=== PATIENT | female | born 1955 | race Caucasian/White ===

== ENCOUNTER → 2016-09-20 | Outpatient (CLI) | payer OTHER ==
[~2016-09-20] MED LIST: IOPAMIDOL (ISOVUE 370) 100 ML BTL IV ONE
== END ==
LOC: FIMAGING 17:42
PROVIDERS: ATTEND Internal Medicine Geriatric Medicine
DX: J90 Pleural effusion, not elsewhere classified (principal); J98.11 Atelectasis; I87.8 Other specified disorders of veins
CPT/HCPCS: Q9967

== ENCOUNTER 2017-01-11 08:04 | Day surgery (SDC) | payer OTHER ==
[2017-01-11] MEDS ORDERED: MIDAZOLAM 2 MG/2 ML VIAL IVP ONE (08:07)
[2017-01-11] MEDS ORDERED: fentaNYL 100 MCG/2 ML INJ IVP ONE (08:07)
[2017-01-11] MEDS ORDERED: NS 1,000 ML IV ONE (08:07)
[2017-01-11] MEDS ORDERED: BENZOCAINE UNIT DOSE SPRAY HURRICAINE MM ONE (08:07)
[2017-01-11] MEDS ORDERED: ATROPINE SULFATE 1 MG/10 ML SYR ONE (09:15)
--- NOTE | 2017-01-11 11:13 | ECHO ---
[id number] + + [address] : : [place] [address] : : [phone] + + Transesophageal Echocardiographic Report + -------+ :Name: ANIRUDH VOGEL Ramon Date: 01/11/2017 09:16 AM : : Hospital Admission Number: [id number] Locati on: [facility]: :: 1955 Gender: Female : :Age: 61 yrs Race: WH : :Reason For Study: Eval mitral regurgitation : + -------+ MMode/2D Measurements \T\ Calculations MV Diam: 4.2 cmLVOT diam: 2.0 cm LVLd ap4: 7.9 cm SV(MOD-sp4): 58.0 ml EDV(MOD-sp4): 99.0 ml LVOT area: 3.1 cm2 LVLs ap4: 6.4 cm ESV(MOD-sp4): 41.0 ml EF(MOD-sp4): 58.6 % Normal Measurement Values: + + :LVIDd (3.5-5.7cm) IVSd (0.6-1.1cm) LVPWd (0.6-1.1cm) Aortic Root (2.0-3.7cm)Left Atrium (1.5-4.0cm): :LV Vol(d) (76-115ml) LV Vol(s) (29-48ml) Ejec Fraction (50-65%)PV Adi (0.6- 1.2m/s) TV Adi (0.4-1.0m/s) : :MV E Adi (0.8-1.0m/s)MV A Adi (0.3-1.0m/s)LVOT Adi (0.7-1.2m/s) Asc Ao Adi ( 0.9-1.8m/s) : + + Doppler Measurements \T\ Calculations MV V2 max: Ao mean PG: AI max adi: LV V1 mean P.9 cm/sec 4.7 mmHg 447.7 cm/sec 2.0 mmHg MV max P.9 mmHg Ao V2 mean: AI max PG: LV V1 mean: MV V2 mean: 100.7 cm/sec 80.2 mmHg 70.2 cm/sec 76.1 cm/sec Ao V2 VTI: AI dec slope: LV V1 VTI: MV mean P.6 mmHg27.3 cm 214.9 cm/sec2 20.7 cm MV V2 VTI: 27.6 cm ISATU(I,D): 2.3 cm2 AI P1/2t: MV area (1 diam): 610.2 msec 13.9 cm2 MVA(VTI): 2.3 cm2 MV Flow area(1diam): 13.9 cm2 MR max adi: MR(RF 1 diam): SV(MV 1 diam): RF(MV,LVOT) 533.4 cm/sec 13.0 % 383.5 ml (1diam): 0.84 MR max PG: SV(LVOT): 63.2 ml 113.8 mmHg Left Ventricle The left ventricle is normal in size. Left ventricular systolic function is low normal. Ejection Fraction = 50-55%%. The left ventricular wall motion is normal. Right Ventricle The right ventricle is normal in size and function. Atria Injection of contrast documented no interatrial shunt. No thrombus is detected in the left atrial appendage. The left atrium is moderately dilated. Right atrial size is normal. Mitral Valve Question slight prolapse of the anterior mitral leaflet. Severe mitral regurgitation with 2 separate jets. Eccentric main jet along the posterior wall of the LA. Tricuspid Valve The tricuspid valve is normal in structure and function. There is mild tricuspid regurgitation. Aortic Valve The aortic valve is trileaflet. Mild aortic regurgitation. Pulmonic Valve The pulmonic valve is not well visualized. Vessels The aortic root is normal size. The pulmonary artery is normal size. Conclusion A 2D transesophageal echocardiogram with color flow Doppler was performed. Normal LV size with low normal LV systolic function. Ejection Fraction = 50-55%. Normal wall motion. Moderate LAE. Injection of contrast documented no interatrial shunt. No thrombus is detected in the left atrial appendage. Normal appearing aortic, tricuspid and pulmonic valves. Question slight prolapse of the anterior mitral leaflet. There is mild tricuspid regurgitation. Mild aortic regurgitation. Severe mitral regurgitation with 2 separate jets. Eccentric main jet along the posterior wall of the LA. Final Reading Physician: William Vogel signed on 01/11/2017 11:12 AM Ordering Physician: Audi Soriano Performed By: Audi Soriano MD
== END 2017-01-11 12:05 | disposition home or self-care (01) ==
LOC: FCATH 08:04
PROVIDERS: ATTEND Internal Medicine Cardiovascular Disease
PROC: B246ZZ4 Ultrasonography of Right and Left Heart, Transesophageal (ICD-10-PCS; principal; 2017-01-11)
DX: I34.0 Nonrheumatic mitral (valve) insufficiency (principal)
CPT/HCPCS: J0461; J2250; J3010

== ENCOUNTER 2017-02-01 13:16 | Observation (INO) | payer OTHER ==
[~2017-02-01 13:16] MED LIST changes: +ACETAMINOPHEN 325 MG TAB PO PRN; +ASPIRIN EC 325 MG TAB PO ONE; +DIAZEPAM 5 MG TAB PO ONE; +FAMOTIDINE 20 MG TAB PO ONE; -IOPAMIDOL (ISOVUE 370) 100 ML BTL IV ONE; +NITROGLYCERIN 0.4 MG BTL SL PRN; +NS 1,000 ML IV SCH; +TEMAZEPAM 15 MG CAP PO PRN; +diphenhydrAMINE 25 MG CAP PO ONE
[2017-02-01] MEDS ORDERED: ASPIRIN EC 325 MG TAB PO ONE ×2 (13:23→14:08)
[2017-02-01] MEDS ORDERED: NS 1,000 ML IV ONE (13:23)
[2017-02-01] MEDS ORDERED: DIAZEPAM 5 MG TAB PO ONE (13:23)
[2017-02-01] MEDS ORDERED: diphenhydrAMINE 25 MG CAP PO ONE ×2 (13:23→14:07)
[2017-02-01] MEDS ORDERED: FAMOTIDINE 20 MG TAB PO ONE (13:23)
--- NOTE | 2017-02-01 13:55 | CPEKG ---
Heart Rate: 88 RR Interval: 682 P-R Interval: 212 QRSD Interval: 80 QT Interval: 400 QTC Interval: 484 P [place]: 71 QRS [place]: 1 T Wave [place]: 59 EKG Severity - ABNORMAL ECG - EKG Impression: SINUS RHYTHM EKG Impression: MULTIFORM VENTRICULAR PREMATURE COMPLEXES Electronically Signed By: August Myers 01-Feb-2017 15:52:57
[2017-02-01] MEDS ORDERED: DIAZEPAM 5 MG TAB ONE (14:08)
[2017-02-01] MEDS ORDERED: FAMOTIDINE 20 MG TAB ONE (14:08)
--- NOTE | 2017-02-01 14:19 | PDPROPOC ---
Sedation Plan of Care Sedation Plan of Care: vital signs stable, mental status noted, patient educated of risks, benefits, alternatives, patient can tolerate sedation ASA Classification: ASA 1 Planned drugs: fentanyl, midazolam Mallampati Score: Class 1 Mallampati Reference Image: Patient passed 3-3-2 rule?: Yes
--- NOTE | 2017-02-01 14:20 | PDHPUP ---
History & Physical Update H&P update statement: This history and physical update is based on an assessment of the patient which was completed after admission or registration (within 24 hours), but prior to the surgery/procedure. H&P update: H&P reviewed & patient examined, no change in patient's condition since H&P completed
[2017-02-01 14:23] LABS: % IMMATURE GRANULYOCYTES 0.2 % (0.0-1.1); ABSOLUTE IMMATURE GRANULOCYTES 0.01 10^3/uL (0.00-0.10); ADD DIFF? NO; ADD MORPH? NO; ADD SCAN? NO; ATYPICAL LYMPHOCYTE FLAG 0 (0-99); FRAGMENT RBC FLAG 0 (0-99); HEMATOCRIT 43.1 % (38.0-47.0); HEMOGLOBIN 14.1 g/dL (12.6-16.3); LEFT SHIFT FLG 0 (0-99); LIPEMIA HEMOLYSIS FLAG 80 (0-99); MEAN CELL HEMOGLOBIN 28.4 pg (27.9-34.1); MEAN CELL HEMOGLOBIN CONCENTR. 32.7 g/dL (32.4-36.7); MEAN CELL VOLUME 86.7 fL (81.5-99.8); MEAN PLATELET VOLUME 11.1 fL (8.7-11.7); PLATELET CLUMPS FLAG 20 (0-99); PLATELET COUNT 207 10^3/uL (150-400); RED BLOOD CELL COUNT 4.97 10^6/uL (4.18-5.33); RED CELL DISTRIBUTION WIDTH 14.5 % (11.5-15.2)
[2017-02-01] MEDS ORDERED: LIDOCAINE 1% 300 MG/30 ML SDV ONE (14:30)
[2017-02-01] MEDS ORDERED: fentaNYL 100 MCG/2 ML INJ ONE (14:31)
[2017-02-01] MEDS ORDERED: MIDAZOLAM 2 MG/2 ML VIAL ONE (14:31)
[2017-02-01 14:32] LABS: INR 1.01 (0.83-1.16); PROTIME(PATIENT) 13.2 SEC (12.0-15.0)
[2017-02-01] MEDS ORDERED: IOPAMIDOL (ISOVUE-370) 150 ML BTL IV ONE (14:32)
[2017-02-01 14:50] LABS: ANION GAP 9 mEq/L (8-16); CALCIUM 9.7 mg/dL (8.5-10.4); CARBON DIOXIDE 23 mEq/l (22-31); CHLORIDE 104 mEq/L (97-110); CHOLESTEROL 164 mg/dL (140-220); CHOLESTEROL/HDL RATIO 3.35 RATIO (1.00-4.44); CREATININE 0.8 mg/dL (0.6-1.0); GLOMERULAR FILTRATION RATE > 60; GLUCOSE 90 mg/dL (70-100); HIGH DENSITY LIPOPROTEIN 49 mg/dL (40-85); LDL/HDL RATIO 2.08 RATIO (1.00-3.22); LOW DENSITY LIPOPROTEIN 102 mg/dL (80-100); MAGNESIUM 1.8 mg/dL (1.6-2.3); NON-HIGH DENSITY LIPOPROTEIN 115 mg/dL (90-129); POTASSIUM 3.8 mEq/L (3.5-5.2); SODIUM 136 mEq/L (134-144); TRIGLYCERIDE 68 mg/dL (35-135); VERY LOW DENSITY LIPOPROTEINS 13 mg/dL (8-25)
[2017-02-01] MEDS ORDERED: VERAPAMIL 5 MG/2 ML VIAL ONE (14:59)
[2017-02-01] MEDS ORDERED: HEPARIN 10,000 UNIT/10 ML MDV ONE (14:59)
[2017-02-01] MEDS ORDERED: METOPROLOL TARTRATE 5 MG/5 ML INJ ONE ×2 (15:43→15:57)
[2017-02-01] MEDS ORDERED: ONDANSETRON 4 MG/2 ML VIAL IVP PRN ×2 (16:05→16:41)
[2017-02-01] MEDS ORDERED: ATROPINE SULFATE 1 MG/10 ML SYR IVP PRN (16:05)
--- NOTE | 2017-02-01 16:09 | PDDXCAT ---
Diagnostic Cath Note - . Date: 02/01/17 Slip Operator: Christie Indication: other ([place] [employer] functional class 2 congestive heart failure; echocardiographic indications of severe mitral regurgitation.) High-risk criteria on non-invasive testing: severe resting left ventricular dysfunction (LVEF<35%) - Procedure Access: right wrist - Materials Left Heart Cath size: 5F Left Heart Cath materials: JL3.5, JR4.0, pigtail Right Heart Cath size: 5F Right Heart Cath materials: PWP catheter - Findings-Left Heart Catheterization LM: Angiographically normal. Cloacal left main with dual ostium. LAD: Angiographically normal. 3 diagonal branches identified. LCX: Moderate caliber, single obtuse marginal. Angiographically normal. RCA: Dominant vessel. Angiographically normal. EDP: Left ventricular pressure 138/39/43 mmHg. LVEF: 25-30%. Global hypokinesis. The patient was in rapid atrial fibrillation at the time of the ventriculogram. 3+ mitral regurgitation. Wall motion: Global hypokinesis. - Findings-Right Heart Catheterization RA: 15 mmHg. RV: 47/10/16 mmHg. PA: 52/33/40 mmHg. PAOP: 30 mmHg. AO: 138/105/120 mmHg. CO: 7.68 liters/minute. CI: 3.58 liters/minute per meter squared. Complications: None. Estimated blood loss: <50ml Closure method: TR Band Assessment: 1. Known severe mitral regurgitation. 2. Evidence of elevated filling pressures. 3. Severely reduced LV systolic function during a period of time when the patient was in rapid atrial fibrillation. It should be noted that the patient developed atrial fibrillation during the performance of the right heart catheterization. 4. Angiographically normal epicardial coronary arteries. Plan: We will plan to perform cardioversion. The patient will be referred to cardiothoracic surgery regarding mitral valve repair.
[2017-02-01] MEDS ORDERED: METOPROLOL TARTRATE 50 MG TAB ONE (17:20)
[2017-02-01] MEDS ORDERED: APIXABAN 5 MG TAB ONE (17:21)
[2017-02-01] MEDS: APIXABAN 5 MG TAB PO SCH (17:28)
[2017-02-01] MEDS ORDERED: METOPROLOL TARTRATE 5 MG/5 ML INJ IVP ONE (17:30)
[2017-02-01] MEDS: METOPROLOL TARTRATE 50 MG TAB PO SCH ×2 (17:31→22:17)
[2017-02-01] MEDS ORDERED: OLMESARTAN MEDOXOMIL 20 MG TAB PO SCH (21:00)
[2017-02-01] MEDS: ADDERALL 20 MG TAB PO SCH (22:17)
[2017-02-01] MEDS ORDERED: FLUoxetine 20 MG CAP PO SCH (22:30)
[2017-02-02 05:26] LABS: ANION GAP 8 mEq/L (8-16); CALCIUM 8.9 mg/dL (8.5-10.4); CARBON DIOXIDE 26 mEq/l (22-31); CHLORIDE 104 mEq/L (97-110); CREATININE 0.8 mg/dL (0.6-1.0); GLOMERULAR FILTRATION RATE > 60; GLUCOSE 95 mg/dL (70-100); SODIUM 138 mEq/L (134-144)
[2017-02-02 05:31] LABS: INR 1.13 (0.83-1.16); PROTIME(PATIENT) 14.4 SEC (12.0-15.0)
[2017-02-02 05:32] LABS: APTT 31.4 SEC (23.0-38.0)
[2017-02-02] MEDS ORDERED: NS 1,000 ML IV ONE (06:00)
[2017-02-02] MEDS ORDERED: LEVOTHYROXINE 125 MCG TAB PO SCH (08:00)
[2017-02-02] MEDS ORDERED: SOLIFENACIN SUCCINATE 5 MG TAB PO SCH (08:00)
--- NOTE | 2017-02-02 08:51 | CPEKG ---
Heart Rate: 73 RR Interval: 822 QRSD Interval: 80 QT Interval: 408 QTC Interval: 450 QRS [place]: 4 T Wave [place]: 68 EKG Severity - ABNORMAL ECG - EKG Impression: ATRIAL FIBRILLATION, V-RATE 54-105 Electronically Signed By: August Myers 02-Feb-2017 09:07:51
[2017-02-02] MEDS ORDERED: CETIRIZINE 10 MG TAB PO SCH (09:00)
[2017-02-02] MEDS ORDERED: CHOLECALCIFEROL VIT D3 50,000 UNIT CAP PO SCH (09:00)
[2017-02-02] MEDS ORDERED: Teriflunomide [Aubagio] 14 MG PO SCH (09:00)
[2017-02-02] MEDS ORDERED: PANTOPRAZOLE SODIUM 40 MG TAB PO SCH (09:00)
[2017-02-02] MEDS ORDERED: CYANO/VITAMIN B12 1000 MCG TAB PO SCH (09:00)
[2017-02-02] MEDS: APIXABAN 5 MG TAB PO SCH (09:33)
--- NOTE | 2017-02-02 09:47 | PDANEPAE ---
ANE History of Present Illness here fo CV ANE Past Medical History - Cardiovascular History Hx Hypertension: Yes Hx Arrhythmias: Yes Hx Chest Pain: No Hx Coronary Artery / Peripheral Vascular Disease: No Hx CHF / Valvular Disease: Yes Hx Palpitations: No - Pulmonary History Hx COPD: No Hx Asthma/Reactive Airway Disease: No Hx Recent Upper Respiratory Infection: No Hx Oxygen in Use at Home: No Hx Sleep Apnea: Yes - Neurologic History Hx Cerebrovascular Accident: No Hx Seizures: No Hx Dementia: No Neurologic History Comment: Mutliple sclerosis - Endocrine History Hx Diabetes: No Hypothyroid: No Hyperthyroid: No Obesity: no - Liver History Hx Hepatic Disorders: No - Neurological & Psychiatric Hx Neurological / Psychiatric History Comment: depression - Chronic Pain History Chronic Pain: No ANE Review of Systems Review of systems is: negative Review of Systems: - Exercise capacity Exercise capacity: <4 METS ANE Patient History - Allergies Allergies/Adverse Reactions: mirabegron Allergy (Verified 01/31/17 08:48) ofloxacin [From Floxin] Allergy (Verified 01/31/17 08:48) Penicillins Allergy (Verified 01/31/17 08:48) Sulfa (Sulfonamide Antibiotics) Allergy (Verified 01/31/17 08:48) IV contrast Allergy (Uncoded 01/20/17 17:29) - Home Medications Home medications: home medication list seen and reviewed Home Medications: Adderall 30 mg Tablet 30 mg PO TID 01/11/17 [Last Taken 02/01/17] Cholecalciferol Vit D3 [Vitamin D3 (*)] 50,000 unit PO DAILY 01/11/17 [Last Taken 02/01/17] Estradiol [Vivelle-Dot 0.05MG (*)] 0.05 mg TD Q7D 01/11/17 [Last Taken 01/31/17] FEXOFENADINE HCL 180 mg PO DAILY 01/11/17 [Last Taken 02/01/17] FLUoxetine [Prozac 20 MG (*)] 20 mg PO HS 01/11/17 [Last Taken 01/31/17] Levothyroxine [Synthroid 125 mcg (*)] 125 mcg PO DAILY@08 01/11/17 [Last Taken 02/01/17] Olmesartan Medoxomil [Benicar] 40 mg PO HS 01/11/17 [Last Taken 02/01/17] Pantoprazole Sodium [Protonix] 20 mg PO DAILY 01/11/17 [Last Taken 02/01/17] Propranolol HCl [Inderal 10mg (*)] 10 mg PO DAILY PRN 01/11/17 [Last Taken 3 Months Ago ~11/01/16] Solifenacin Succinate [Vesicare 5 MG (*)] 5 mg PO DAILY8 01/11/17 [Last Taken ] Teriflunomide [Aubagio] 14 mg PO DAILY 01/11/17 [Last Taken 02/01/17] Vitamin B12 1,000 mg PO DAILY 01/11/17 [Last Taken 02/01/17] - NPO status NPO Status: no food or drink >8 hours - Smoking Hx Smoking Status: Never smoked ANE Labs/Vital Signs - Labs Result Diagrams: 02/01/17 14:00 02/02/17 04:13 - Vital Signs Blood Pressure: 129/83 Heart Rate: 89 Respiratory Rate: 14 O2 Sat (%): 98 Height: 180 cm Weight: 94.7 kg ANE Physical Exam - Airway Neck exam: FROM Mallampati Score: Class 2 Mouth exam: normal dental/mouth exam - Pulmonary Pulmonary: no respiratory distress - Cardiovascular Cardiovascular: irregularly irregular - ASA Status ASA Status: III ANE Anesthesia Plan Anesthesia Plan: GA with mask
[2017-02-02] MEDS ORDERED: PROPOFOL 200 MG/20 ML VIAL ONE (09:48)
--- NOTE | 2017-02-02 10:18 | CPEKG ---
Heart Rate: 66 RR Interval: 909 P-R Interval: 212 QRSD Interval: 78 QT Interval: 460 QTC Interval: 482 P [place]: 34 QRS [place]: -3 T Wave [place]: 50 EKG Severity - BORDERLINE ECG - EKG Impression: SINUS RHYTHM EKG Impression: BORDERLINE R WAVE PROGRESSION, ANTERIOR LEADS Electronically Signed By: August Myers 02-Feb-2017 10:18:02
--- NOTE | 2017-02-02 10:25 | POSTANESTH ---
Post Anesthetic Evaluation Cardiovascular Status: Normal, Stable Respiratory Status: Normal, Stable Level of Consciousness/Mental Status: Can Participate in Eval Pain Control: Adequate, Prn Tx Ordered Nausea/Vomiting Control: Adequate, Prn Tx Ordered Complications Possibly Related to Anesthesia: None Noted
--- NOTE | 2017-02-02 10:27 | PDTEE1 ---
MEL Cardioversion Procedure Procedure: Electrical Cardioversion, Transesophageal Echo Indications: Atrial Fibrillation Consent: Signed and in Chart Anticoagulation: Eliquis Procedural Details: Pads were placed in anterior-posterior position. MEL probe was advanced and standard images obtained. There is no evidence of left atrial or left atrial appendage thrombus. Synchronized cardioversion attempt #1: 200J Results: Normal sinus rhythm Conclusions: Successful Cardioversion
[2017-02-02] MEDS: ADDERALL 20 MG TAB PO SCH (11:15)
[2017-02-02] MEDS: METOPROLOL TARTRATE 50 MG TAB PO SCH (11:16)
[2017-02-02 11:24] VITALS: PULSE 72
--- NOTE | 2017-02-02 11:38 | ECHO ---
[id number] + + [address] : : [facility] [address] : : [phone] + + Transesophageal Echocardiographic Report + -------+ :Name: ANIRUDH VOGEL Date: 02/02/2017 10:18 AM : : Hospital Admission Number: [id number] Locati on: [facility]: :: 1955 Gender: Female : :Age: 61 yrs Race: WH : :Reason For Study: Eval LV Fx : :History: Pre Cardioversion : + -------+ Left Ventricle Ejection Fraction = 30%. The rhythm is atrial fibrilllation. Atria Injection of contrast documented no interatrial shunt. The interatrial septum is intact with no evidence for an atrial septal defect. Mitral Valve There is severe mitral regurgitation. Tricuspid Valve There is mild tricuspid regurgitation. Aortic Valve The aortic valve is trileaflet. There is no aortic stenosis. Mild aortic regurgitation. Pulmonic Valve The pulmonic valve is normal in structure and function. Conclusion A 2D transesophageal echocardiogram with color flow Doppler was performed. Ejection Fraction = 30%. The rhythm is atrial fibrilllation. Injection of contrast documented no interatrial shunt. The interatrial septum is intact with no evidence for an atrial septal defect. There is severe mitral regurgitation. There is mild tricuspid regurgitation. The aortic valve is trileaflet. Mild aortic regurgitation. Proceeded with successful elective DC cardioversion. Final Reading Physician: William Jenkins signed on 02/02/2017 11:37 AM Ordering Physician: Carlos Vega MD Performed By: Carlos Vega MD
--- NOTE | 2017-02-02 11:40 | ECHO ---
[id number] + + [address] : : [place] [address] : : [phone] + + Adult Echocardiographic Report + -------+ :Name: ANIRUDH VOEGL Chrisjoseph Date: 02/02/2017 09:28 AM : : Hospital Admission Number: [id number] Locati on: [facility]: :: 1955 Gender: Female Height: 70 in : :Age: 61 yrs Race: WH Weight: 208 lb : :Reason For Study: Eval LV Fx : : BSA: 2.1 meter s2 : :History: Pre Cardioversion : + -------+ MMode/2D Measurements & Calculations IVSd: 0.93 cm LVIDd: 5.0 cm FS: 14.6 % MV Diam: 3.1 cm LVPWd: 1.1 cm LVIDs: 4.3 cm EDV(Teich): 117.0 ml ESV(Teich): 80.8 ml EF(Teich): 30.9 % LVOT diam: 1.9 cm LVOT area: 2.8 cm2 Normal Measurement Values: + + :LVIDd (3.5-5.7cm) IVSd (0.6-1.1cm) LVPWd (0.6-1.1cm) Aortic Root (2.0-3.7cm)Left Atrium (1.5-4.0cm): :LV Vol(d) (76-115ml) LV Vol(s) (29-48ml) Ejec Fraction (50-65%)PV Adi (0.6- 1.2m/s) TV Adi (0.4-1.0m/s) : :MV E Adi (0.8-1.0m/s)MV A Adi (0.3-1.0m/s)LVOT Adi (0.7-1.2m/s) Asc Ao Adi ( 0.9-1.8m/s) : + + Doppler Measurements & Calculations MV V2 mean: MR max adi: MR(RF 1 diam): SV(MV 1 diam): 71.5 cm/sec 533.4 cm/sec 89.1 % 179.3 ml MV mean P.6 mmHg MR max PG: SI(MV 1 diam): MV V2 VTI: 24.2 cm 113.8 mmHg MV area (1 diam): 84.5 ml/m2 7.4 cm2 MV Flow area(1diam): 7.4 cm2 Left Ventricle Ejection Fraction = 30%. Mitral Valve There is severe mitral regurgitation. Pericardium/Pleural There is no pericardial effusion. Conclusion This is a limited echo to evaluate for LV Fx. The rhythm is atrial fibrillation. Ejection Fraction = 30%. There is severe mitral regurgitation. There is no pericardial effusion. Final Reading Physician: William Jenkins signed on 02/02/2017 11:37 AM Ordering Physician: Shaka Lopez Performed By: Gunnar Phipps RDCS
--- NOTE | 2017-02-02 14:13 | GDS ---
[f rep st] DISCHARGE SUMMARY ADMISSION DIAGNOSIS: 1. Mitral regurgitation. 2. Hypertension. 3. Congestive heart failure. Chronic, diastolic. 4. Attention deficit disorder. 5. Paroxysmal atrial fibrillation. 6. Hypothyroidism. DISCHARGE DIAGNOSIS: 1. Mitral regurgitation. 2. Hypertension. 3. Chronic diastolic heart failure. 4. Attention deficit disorder. 5. Paroxysmal atrial fibrillation and flutter. 6. Hypothyroidism. PROCEDURES PERFORMED DURING HOSPITALIZATION: 1. Electrocardiogram. 2. Cardiac catheterization, right and left. 3. Limited echocardiogram. 4. Transesophageal echocardiogram. 5. Cardioversion. BRIEF HISTORY: Please see H and P: The patient is a 61-year-old female, who has a known history of mitral regurgitation. She recently had seen Dr. Soriano, her primary film loader, in which she was no jacqueline to have worsening mitral regurgitation of a previous MEL done on January 11, causing more episod es of worsening of her chronic congestive heart failure. Her ejection fraction was also noted to be decreased, from 60% down to 50% to 55%. Atrium was enlarged. It was decided that, with worsening of her valvular heart disease, she might need to have mitral valve repair or replacement done soon. In preparation for surgery, she underwent right and left heart catheterization electively. HOSPITAL COURSE: The patient was admitted to the PCU, prepped for procedure, and taken to the cardia c catheterization lab. There Dr. Soriano performed left coronary angiograms from the right radial appr [facility], and right heart catheterization from right brachial access point. Findings were, right heart p ressures: Right atrium was 15, RV 47/10 with a mean of 16, PA 52/30 with mean of 40, wedge pressure of 30 mmHg. Aortic pressure 130/105 with mean of 120 by our MAP. Cardiac output 7.68, cardiac index 3.58. Unfortunately, as Dr. Soriano was doing the right heart catheterization, the patient went into atrial fibrillation/flutter. She was fairly well rate controlled and hemodynamically stable. He pro ceeded on, doing the left coronary catheterization, which showed angiographically normal epicardial c oronary arteries. LV-gram was done, and it was noted that the EF was reduced from 25% to 30% with gl obal hypokinesis. This was when the patient was in rapid atrial fibrillation at the time, and it was felt that this was due to the arrhythmia. In stable condition, the patient was transferred back to the PCU for observation in hopes that she would self-convert back to sinus rhythm. Unfortunately thi s did not happen in a quick manner, and due to that she was hemodynamically stable, Dr. Soriano had her admitted to the hospital for overnight observation, starting her on anticoagulation therapy of Eliqu is and changing her beta aaron to metoprolol tartrate. Overnight she remained stable, denying any chest pain, shortness of breath, or symptoms suggesting of ischemia. Unfortunately, she remained bet ween atrial fibrillation and a flutter, but with the addition of beta-aaron, her heart rate was ramez rly well controlled, averaging between mid 80s to low 110 beats per minute. Due not converting overn ight, she was brought back to the [facility] this morning, where a repeated limited echo was done, showing e jection fraction still remaining at 30%, with severe mitral regurgitation, and at that time Dr. Hanson son performed a transesophageal echocardiogram, confirming EF was 30%. Contrast injection was done, showing no interatrial shunt, no thrombus or clot detected. The patient was then cardioverted back i nto sinus rhythm. She was sedated by anesthesia. At this time, she is back from the PCU, she is wid e awake, denying any chest pressure or pain. PHYSICAL EXAMINATION: GENERAL APPEARANCE: Well groomed, mildly overweight, female. She i s alert and oriented to person, place, time, and situation. Appears to be under no acute distress. CURRENT VITAL SIGNS: Blood pressure of 111/78, heart rate of 72 in sinus rhythm on the monitor, resp irations are 14, saturating 94% on room air, temperature this morning was 36.6 degrees Celsius. HEEN T: Head is normocephalic. Lips and tongue are pink and moist, with no signs of cyanosis. Conjuncti vae pink. NECK: Trachea is midline, +2 carotid pulses bilateral. No auscultated bruits, no jugular vein distention. RESPIRATORY: Lungs clear to auscultation, no rhonchi, rales or wheezes. No acces ashley muscle use, no intercostal muscle retraction noted. CARDIAC: Regular rate, regular rhythm. S1 , S2, a 3/6 systolic murmur noted along the left sternal border. ABDOMEN: Soft, nontender, bowel so unds x4 quadrants, no organomegaly, no palpable masses. SKIN: [place], warm, dry, no cyanosis, no club hai, no peripheral edema. VASCULAR: +2 carotids bilateral, +2 radials bilateral, +1 posterior tibi al and dorsal pedal pulses bilateral. EXTREMITIES: Catheter insertion site, right radial and antecu bital sites. Mild ecchymosis around the right radial insertion site, but no hematoma, redness, swell ing, drainage, or bleeding noted. The patient's CMS checks to her right hand are within normal limit s, normal capillary refill. Right antecubital site, with no redness, swelling, drainage, ecchymosis, or hematoma. LABORATORY STUDIES: Drawn on day of admission, showed WBC of 6.03 hemoglobin of 14.1, hematocrit 43. 1, platelet count 207, total cholesterol 164, triglycerides 68, LDL 102, HDL 49. This morning's lab showed INR of 1.13, sodium 138, potassium 4.0, chloride 104, CO2 26, BUN 17, creatinine 0.8, glucose 95, calcium 8.9. STUDIES: Cardiac catheterization, right and left, as mentioned above. Transthoracic echocardiogram, as mentioned above. Transesophageal echocardiogram, as mentioned above. Cardioversion, as mentione d above. This morning's electrocardiogram post cardioversion shows sinus rhythm, normal axis, border line poor R-wave progression in anterior leads. DISCHARGE DISPOSITION: Patient will be discharged home in stable condition. She is under activity r estrictions of no strenuous activity for the next week, no lifting more than 10 pounds with the right arm for the next week. DISCHARGE MEDICATIONS: Please see discharge med reconciliation sheet. In addition to her regular [facility] medications, due to having an episode of atrial fibrillation requiring cardioversion and having a CHADS-VASc score of 3, she has been started on anticoagulation of Eliquis 5 mg p.o. b.i.d. Risks and benefits of this medication were explained to the patient. She verbalizes understanding and is want ing to proceed. She has been given a prescription with a 30-day-free card from the tire service supervisor. Al so, her home propranolol p.r.n. dose has been discontinued, and she has been started on metoprolol ta rtrate at 25 mg p.o. b.i.d. DISCHARGE INSTRUCTIONS: Post cardiac catheterization discharge instructions, including monitoring fo r signs of infections, bleeding precautions, activity restrictions, and medication compliance, went o bert with the patient. Also, post MEL cardioversion results went over with the patient. She has a sc heduled followup appointment with Dr. Soriano on February 06 at 1 p.m. at our [place] office. At t hat time, more than likely, he will be making a referral to CT surgery for patient to have mitral drea ve repair or replacement done. At the time of discharge, patient verbalizes understanding of all ins tructions and has no questions. Importance of medication compliancy went over with the patient, and she verbalizes understanding. The patient has also been told that if she has any problems or concern s once arriving home, she is to call our office or return to the hospital immediately. Total time spent on discharge greater than 30 minutes. /[id number]/MODL
[2017-02-02 14:22] VITALS: BP 115/84; RESP 18; TEMP 97.9; O2SAT 94
--- NOTE | 2017-02-02 16:48 | ASDISCHSUM ---
Discharge Information Plan Status:Home with No Needs Medically Cleared to Leave: Discharge Date:02/02/2017 03:00 PM CM D/C Disposition:Home, Routine, Self-Care ADT D/C Disposition:Home, Routine, Self-Care Projected Discharge Date:02/02/2017 03:00 PM Transportation at D/C:Family Discharge Delay Reason: Follow-Up Date:02/02/2017 03:00 PM Discharge Slot: Final Diagnosis: Placement Information Patient Contact Information Contact Name:ZAC Relationship: Address: Home Phone: Work Phone: City: Alternate Phone: State/Zip Code: Email: Financial Information Financial Class:[facility] Primary Plan Desc:SHANIQUA VICTOR Primary Plan Number:[id number] Secondary Plan Desc: Secondary Plan Number: Assessment Information Intervention Information
[2017-02-03] MEDS ORDERED: Teriflunomide [Aubagio] 14 MG PO SCH (09:00)
[2017-02-07] MEDS ORDERED: ESTRADIOL VIVELLE 0.05 MG PATCH TD SCH (09:00)
== END 2017-02-02 15:00 | disposition home or self-care (01) ==
LOC: FCATH 13:16 → F2W 16:44
PROVIDERS: ADMIT Internal Medicine Cardiovascular Disease; ATTEND Internal Medicine Cardiovascular Disease
PROC: B245ZZ4 Ultrasonography of Left Heart, Transesophageal (ICD-10-PCS; principal; 2017-02-01)
PROC: 5A2204Z Restoration of Cardiac Rhythm, Single (ICD-10-PCS; principal; 2017-02-01)
PROC: B2111ZZ Fluoroscopy of Multiple Coronary Arteries using Low Osmolar Contrast (ICD-10-PCS; 2017-02-01)
PROC: 4A023N8 Measurement of Cardiac Sampling and Pressure, Bilateral, Percutaneous Approach (ICD-10-PCS; 2017-02-01)
PROC: B2151ZZ Fluoroscopy of Left Heart using Low Osmolar Contrast (ICD-10-PCS; 2017-02-01)
DX: I48.0 Paroxysmal atrial fibrillation (principal); I48.92 Unspecified atrial flutter; I34.0 Nonrheumatic mitral (valve) insufficiency; I11.0 Hypertensive heart disease with heart failure; I50.32 Chronic diastolic (congestive) heart failure; E03.9 Hypothyroidism, unspecified; F98.8 Other specified behavioral and emotional disorders with onset usually occurring in childhood and adolescence
CPT/HCPCS: 97161-GP; C1769; G0378; J0461; J1644; J2250; J2704; J3010; Q9967

== ENCOUNTER 2017-04-05 08:27 | Day surgery (SDC) | payer OTHER ==
[2017-04-05] MEDS ORDERED: NS 500 ML IV ONE (08:29)
[2017-04-05] MEDS ORDERED: BENZOCAINE UNIT DOSE SPRAY HURRICAINE MM ONE (08:29)
[2017-04-05] MEDS ORDERED: MIDAZOLAM 2 MG/2 ML VIAL IVP ONE (08:29)
[2017-04-05] MEDS ORDERED: fentaNYL 100 MCG/2 ML INJ IVP ONE (08:29)
[2017-04-05] MEDS ORDERED: ATROPINE SULFATE 1 MG/10 ML SYR IVP ONE (08:29)
[2017-04-05] MEDS ORDERED: ATROPINE SULFATE 1 MG/10 ML SYR ONE (08:31)
--- NOTE | 2017-04-05 08:48 | CPEKG ---
Heart Rate: 112 RR Interval: 536 P-R Interval: 136 QRSD Interval: 76 QT Interval: 304 QTC Interval: 415 P [place]: 0 QRS [place]: -3 T Wave [place]: 80 EKG Severity - ABNORMAL ECG - EKG Impression: SINUS TACHYCARDIA EKG Impression: MULTIPLE VENTRICULAR PREMATURE COMPLEXES EKG Impression: LOW VOLTAGE IN FRONTAL LEADS Electronically Signed By: Flo Minor 06-Apr-2017 18:25:22
[2017-04-05 09:12] LABS: ANION GAP 11 mEq/L (8-16); CALCIUM 8.9 mg/dL (8.5-10.4); CARBON DIOXIDE 25 mEq/l (22-31); CHLORIDE 105 mEq/L (97-110); CREATININE 1.2 mg/dL (0.6-1.0); GLOMERULAR FILTRATION RATE 45; GLUCOSE 66 mg/dL (70-100); MAGNESIUM 1.6 mg/dL (1.6-2.3); POTASSIUM 3.4 mEq/L (3.5-5.2); SODIUM 141 mEq/L (134-144)
[2017-04-05 09:18] LABS: APTT 31.5 SEC (23.0-38.0); INR 1.89 (0.83-1.16); PROTIME(PATIENT) 21.8 SEC (12.0-15.0)
--- NOTE | 2017-04-05 09:26 | PDANEPAE ---
ANE History of Present Illness AF ANE Past Medical History - Cardiovascular History Hx Hypertension: Yes Hx Arrhythmias: Yes Hx Chest Pain: No Hx Coronary Artery / Peripheral Vascular Disease: No Hx CHF / Valvular Disease: Yes Hx Palpitations: No - Pulmonary History Hx COPD: No Hx Asthma/Reactive Airway Disease: No Hx Recent Upper Respiratory Infection: No Hx Oxygen in Use at Home: No Hx Sleep Apnea: Yes - Neurologic History Hx Cerebrovascular Accident: No Hx Seizures: No Hx Dementia: No Neurologic History Comment: Mutliple sclerosis - Endocrine History Hx Diabetes: No - Liver History Hx Hepatic Disorders: No - Neurological & Psychiatric Hx Neurological / Psychiatric History Comment: depression - Chronic Pain History Chronic Pain: No ANE Review of Systems Review of systems is: negative Review of Systems: - Exercise capacity Exercise capacity: <4 METS ANE Patient History - Allergies Allergies/Adverse Reactions: mirabegron Allergy (Verified 04/03/17 13:23) ofloxacin [From Floxin] Allergy (Verified 04/03/17 13:23) Penicillins Allergy (Verified 04/03/17 13:23) Sulfa (Sulfonamide Antibiotics) Allergy (Verified 04/03/17 13:23) IV contrast Allergy (Uncoded 01/20/17 17:29) - Home Medications Home Medications: Adderall 30 mg Tablet 30 mg PO TID 01/11/17 [Last Taken 02/01/17] Cholecalciferol Vit D3 [Vitamin D3 (*)] 50,000 unit PO DAILY 01/11/17 [Last Taken 02/01/17] Estradiol [Vivelle-Dot 0.05MG (*)] 0.05 mg TD Q7D 01/11/17 [Last Taken 01/31/17] FEXOFENADINE HCL 180 mg PO DAILY 01/11/17 [Last Taken 02/01/17] FLUoxetine [Prozac 20 MG (*)] 20 mg PO HS 01/11/17 [Last Taken 01/31/17] Levothyroxine [Synthroid 125 mcg (*)] 125 mcg PO DAILY@08 01/11/17 [Last Taken 02/01/17] Olmesartan Medoxomil [Benicar] 40 mg PO HS 01/11/17 [Last Taken 02/01/17] Pantoprazole Sodium [Protonix] 20 mg PO DAILY 01/11/17 [Last Taken 02/01/17] Solifenacin Succinate [Vesicare 5 MG (*)] 5 mg PO DAILY8 01/11/17 [Last Taken ] Teriflunomide [Aubagio] 14 mg PO DAILY 01/11/17 [Last Taken 02/01/17] Vitamin B12 1,000 mg PO DAILY 01/11/17 [Last Taken 02/01/17] - NPO status NPO Status: no food or drink >8 hours - Anes Hx Anes Hx: no prior problems - Smoking Hx Smoking Status: Never smoked - Alcohol Use Alcohol Use: None ANE Labs/Vital Signs - Labs Result Diagrams: 04/05/17 08:53 ANE Physical Exam - Airway Mallampati Score: Class 1 Mouth exam: normal dental/mouth exam - Pulmonary Pulmonary: no respiratory distress - Cardiovascular Cardiovascular: irregularly irregular - ASA Status ASA Status: III ANE Anesthesia Plan Anesthesia Plan: GA with mask
[2017-04-05] MEDS ORDERED: PROPOFOL 200 MG/20 ML VIAL ONE ×2 (09:28)
[2017-04-05] MEDS ORDERED: LIDOCAINE 1% 5 ML SDV ONE (09:28)
--- NOTE | 2017-04-05 09:51 | PDTEE1 ---
MEL Cardioversion Procedure Procedure: electrical cardioversion, transesophageal echo Indications: atrial fibrillation Anticoagulation: eliquis Procedural Details: Pads were placed in anterior-posterior position. MEL probe was advanced and standard images obtained. There is no evidence of left atrial or left atrial appendage thrombus. Synchronized cardioversion attempt #1: other (70) Results: normal sinus rhythm Conclusions: successful MEL cardioversion
--- NOTE | 2017-04-05 14:12 | ECHO ---
[email or web address] [address] [address] Main: [phone] Fax: Transesophageal Echocardiography Name: ANIRUDH VOGEL MR#: [id number] Study Date: 04/05/2017 Study Time: 09:31 AM Date of : 1955 Age: 61 year(s) Height: ( ) Weight: ( ) BSA: Gender: Female Examination: Indication: Pre Cardioversion, new onset Atrial Flutter Image Quality: Contrast: Requested by: Audi Soriano Heart Rate: Rhythm: Atrial flutter BP: / Procedure Staff Vehicle Refinisher: Gunnar Phipps Reading Physician: Audi Soriano Requesting Provider: MEL Exam Details Conclusions: Limited transesophageal echocardiogram performed prior to a cardioversion of atrial flutter. The left atrial appendage was free of thrombus. The left ventricle appears to be normal in size. The ejection fraction is moderately reduced estimated at 40% with global hypokinesis. The mitral valve morphology appears to be normal. The coaptation point of the leaflets is a basically displaced. There is severe mitral regurgitation. Following the procedure the patient underwent a successful cardioversion of atrial flutter to normal sinus rate rhythm. Measurements: Chambers Valvular Assessment AV/MV Valvular Assessment TV/PV Normal Normal Normal Name Value Range Name Value Range Name Value Range Additional Measurements: Findings: Left Ventricle: Normal global systolic LV function. Proceeded with successful elective DC cardioversion.. Left Atrial Appendage: Good color flow doppler in the left atrial appendage. Normal PW-Doppler flow pattern. No thrombus in left appendage. Spontaneous contrast is present in the left atrial appendage. Mitral Valve: Patient: ANIRUDH VOGEL Study Date: 04/05/2017 Page 1 of 2 09:31 AM Severe mitral valve regurgitation is present. Tricuspid Valve: Moderate tricuspid regurgitation is present. l1n (No Signature Object) Patient: ANIRUDH VOGEL Study Date: 04/05/2017 Page 2 of 2 09:31 AM [id number]
--- NOTE | 2017-04-05 14:16 | CPEKG ---
Heart Rate: 76 RR Interval: 789 P-R Interval: 224 QRSD Interval: 84 QT Interval: 382 QTC Interval: 430 P [place]: 57 QRS [place]: -12 T Wave [place]: 32 EKG Severity - ABNORMAL ECG - EKG Impression: SINUS RHYTHM EKG Impression: FIRST DEGREE AV BLOCK EKG Impression: LOW VOLTAGE IN FRONTAL LEADS EKG Impression: BORDERLINE R WAVE PROGRESSION, ANTERIOR LEADS EKG Impression: BORDERLINE T ABNORMALITIES, ANT-LAT LEADS EKG Impression: VENTRICULAR PREMATURE COMPLEX Electronically Signed By: Flo Minor 06-Apr-2017 18:42:32
== END 2017-04-05 12:45 | disposition home or self-care (01) ==
LOC: FCATH 08:27
PROVIDERS: ATTEND Internal Medicine Cardiovascular Disease
PROC: B245ZZ4 Ultrasonography of Left Heart, Transesophageal (ICD-10-PCS; principal; 2017-04-05)
PROC: 5A2204Z Restoration of Cardiac Rhythm, Single (ICD-10-PCS; principal; 2017-04-05)
DX: I48.0 Paroxysmal atrial fibrillation (principal); Z79.01 Long term (current) use of anticoagulants; I10 Essential (primary) hypertension; I34.0 Nonrheumatic mitral (valve) insufficiency; I42.8 Other cardiomyopathies; F32.9 Major depressive disorder, single episode, unspecified
CPT/HCPCS: J0461; J2704

== ENCOUNTER 2017-05-18 09:41 | Day surgery (SDC) | payer OTHER ==
[2017-05-18] MEDS ORDERED: fentaNYL 100 MCG/2 ML INJ IVP ONE (09:46)
[2017-05-18] MEDS ORDERED: NS 500 ML IV ONE (09:46)
[2017-05-18] MEDS ORDERED: ATROPINE SULFATE 1 MG/10 ML SYR IVP ONE (09:46)
[2017-05-18] MEDS ORDERED: MIDAZOLAM 2 MG/2 ML VIAL IVP ONE (09:46)
[2017-05-18] MEDS ORDERED: BENZOCAINE UNIT DOSE SPRAY HURRICAINE MM ONE (09:46)
--- NOTE | 2017-05-18 10:39 | CPEKG ---
Heart Rate: 120 RR Interval: 500 P-R Interval: 154 QRSD Interval: 86 QT Interval: 324 QTC Interval: 458 P [place]: 103 QRS [place]: -19 T Wave [place]: 76 EKG Severity - ABNORMAL ECG - EKG Impression: SINUS TACHYCARDIA EKG Impression: BORDERLINE LEFT AXIS DEVIATION EKG Impression: LOW VOLTAGE IN FRONTAL LEADS EKG Impression: BORDERLINE R WAVE PROGRESSION, ANTERIOR LEADS EKG Impression: BORDERLINE T WAVE ABNORMALITIES Electronically Signed By: Mike Orozco 18-May-2017 13:13:26
[2017-05-18 11:02] LABS: INR 1.25 (0.83-1.16); PROTIME(PATIENT) 15.9 SEC (12.0-15.0)
[2017-05-18] MEDS ORDERED: PROPOFOL 200 MG/20 ML VIAL ONE ×2 (11:37→11:52)
--- NOTE | 2017-05-18 11:40 | PDANEPAE ---
ANE History of Present Illness MEL CV ANE Past Medical History - Cardiovascular History Hx Hypertension: Yes Hx Arrhythmias: Yes Hx Chest Pain: No Hx Coronary Artery / Peripheral Vascular Disease: No Hx CHF / Valvular Disease: Yes Hx Palpitations: No - Pulmonary History Hx COPD: No Hx Asthma/Reactive Airway Disease: No Hx Recent Upper Respiratory Infection: No Hx Oxygen in Use at Home: No Hx Sleep Apnea: Yes - Neurologic History Hx Cerebrovascular Accident: No Hx Seizures: No Hx Dementia: No Neurologic History Comment: Mutliple sclerosis - Endocrine History Hx Diabetes: No - Liver History Hx Hepatic Disorders: No - Neurological & Psychiatric Hx Neurological / Psychiatric History Comment: depression - Chronic Pain History Chronic Pain: No ANE Review of Systems Review of Systems: SOB - Exercise capacity METS (RN): 2 METS ANE Patient History - Allergies Allergies/Adverse Reactions: mirabegron Allergy (Verified 05/17/17 17:06) ofloxacin [From Floxin] Allergy (Verified 05/17/17 17:06) Penicillins Allergy (Verified 05/17/17 17:06) rivaroxaban [From Xarelto] Allergy (Verified 05/17/17 17:06) Sulfa (Sulfonamide Antibiotics) Allergy (Verified 05/17/17 17:06) IV contrast Allergy (Uncoded 01/20/17 17:29) - Home Medications Home medications: home medication list seen and reviewed Home Medications: Adderall 30 mg Tablet 30 mg PO TID 01/11/17 [Last Taken 02/01/17] Cholecalciferol Vit D3 [Vitamin D3 (*)] 50,000 unit PO DAILY 01/11/17 [Last Taken 02/01/17] Estradiol [Vivelle-Dot 0.05MG (*)] 0.05 mg TD Q7D 01/11/17 [Last Taken 01/31/17] FEXOFENADINE HCL 180 mg PO DAILY 01/11/17 [Last Taken 02/01/17] FLUoxetine [Prozac 20 MG (*)] 20 mg PO HS 01/11/17 [Last Taken 01/31/17] Levothyroxine [Synthroid 125 mcg (*)] 125 mcg PO DAILY@08 01/11/17 [Last Taken 02/01/17] Olmesartan Medoxomil [Benicar] 40 mg PO HS 01/11/17 [Last Taken 02/01/17] Pantoprazole Sodium [Protonix] 20 mg PO DAILY 01/11/17 [Last Taken 02/01/17] Solifenacin Succinate [Vesicare 5 MG (*)] 5 mg PO DAILY8 01/11/17 [Last Taken ] Teriflunomide [Aubagio] 14 mg PO DAILY 01/11/17 [Last Taken 02/01/17] Vitamin B12 1,000 mg PO DAILY 01/11/17 [Last Taken 02/01/17] Amiodarone HCl 05/18/17 [Last Taken Unknown] Clobetasol Emollient 0.05% Crm 05/18/17 [Last Taken Unknown] Furosemide 05/18/17 [Last Taken Unknown] Metolazone 05/18/17 [Last Taken Unknown] Potassium 05/18/17 [Last Taken Unknown] Sertraline HCl 05/18/17 [Last Taken Unknown] - Smoking Hx Smoking Status: Never smoked ANE Labs/Vital Signs - Labs Result Diagrams: 05/18/17 10:10 - Vital Signs Height: 180.34 cm Weight: 90.718 kg ANE Physical Exam - Airway Neck exam: FROM Mallampati Score: Class 1 - Pulmonary Pulmonary: no respiratory distress - Cardiovascular Cardiovascular: irregularly irregular - ASA Status ASA Status: IV ANE Anesthesia Plan Total IV Anesthesia: Yes
--- NOTE | 2017-05-18 11:56 | PDTEE1 ---
MEL Cardioversion Procedure Procedure: electrical cardioversion, transesophageal echo Indications: other (Atrial flutter) Consent: signed and in chart Anticoagulation: eliquis Procedural Details: Pads were placed in anterior-posterior position. MEL probe was advanced and standard images obtained. There is no evidence of left atrial or left atrial appendage thrombus. Synchronized cardioversion attempt #1: other (75) Results: normal sinus rhythm Conclusions: successful MEL cardioversion
[2017-05-18] MEDS ORDERED: ONDANSETRON 4 MG/2 ML VIAL IVP PRN (12:08)
[2017-05-18] MEDS ORDERED: OXYCODONE/APAP 5/325 TAB PO PRN (12:08)
[2017-05-18] MEDS ORDERED: HYDROCODONE/APAP 5/325 TAB PO PRN (12:08)
[2017-05-18] MEDS ORDERED: NALOXONE HCL 0.4 MG/ML INJ IVP PRN (12:08)
--- NOTE | 2017-05-18 12:09 | POSTANESTH ---
Post Anesthetic Evaluation Cardiovascular Status: Similar to Pre-Op Cond Respiratory Status: Similar to Pre-op Cond. Level of Consciousness/Mental Status: Can Participate in Eval, Mildly Sleepy, Arousable Pain Control: Adequate, Prn Tx Ordered Nausea/Vomiting Control: Adequate, Prn Tx Ordered Complications Possibly Related to Anesthesia: None Noted
--- NOTE | 2017-05-18 12:10 | CPEKG ---
Heart Rate: 69 RR Interval: 870 P-R Interval: 216 QRSD Interval: 84 QT Interval: 419 QTC Interval: 449 P [place]: 47 QRS [place]: -16 T Wave [place]: 38 EKG Severity - BORDERLINE ECG - EKG Impression: SINUS RHYTHM EKG Impression: VENTRICULAR PREMATURE COMPLEX EKG Impression: BORDERLINE LEFT AXIS DEVIATION EKG Impression: BORDERLINE T WAVE ABNORMALITIES Electronically Signed By: Mike Orozco 18-May-2017 13:13:43
--- NOTE | 2017-05-18 15:12 | ECHO ---
[email or web address] [address] [address] Main: [phone] Fax: Transesophageal Echocardiography Name: ANIRUDH VOGEL MR#: [id number] Study Date: 05/18/2017 Study Time: 10:53 AM Date of : 1955 Age: 61 year(s) Height: ( ) Weight: ( ) BSA: Gender: Female Examination: MEL Indication: pre-cardioversion; r/o CHIP thrombus Image Quality: Contrast: Requested by: Audi Soriano Heart Rate: Rhythm: BP: / Procedure Staff Nuclear Medicine Specialist: Tonya Latham Reading Physician: Audi Soriano Requesting Provider: MEL Exam Details Conclusions: Mildly dilated left ventricle with severely reduced LV systolic function. LVEF estimated at 30-35%. Severe global hypokinesis. Normal RV and RA dimensions. Mild to moderate left atrial enlargement. Left atrial appendage free of thrombus. Morphologically normal appearing mitral valve with an apicallly displaced coaptation point. Severe mitral regurgitation is noted. Normal-appearing tricuspid and aortic valves. Doppler was not performed on these valves. Immediately following the MEL the patient underwent cardioversion. Measurements: Chambers Valvular Assessment AV/MV Valvular Assessment TV/PV Normal Normal Normal Name Value Range Name Value Range Name Value Range EF Range: 30-35 % Additional Measurements: Findings: Left Ventricle: Mildly dilated left ventricle. Moderately reduced systolic LV function. The ejection fraction is estimated to be 30-35 %. Left Atrium: The left atrium is severely dilated. No thrombus is noted in the left atrium. Left Atrial Appendage: Patient: ANIRUDH VOGEL Study Date: 05/18/2017 Page 1 of 2 10:53 AM No thrombus in left appendage. Mitral Valve: There is mild thickening of the mitral valve leaflets. Severe mitral valve regurgitation is present. The cause of the mitral valve regurgitation is incomplete systolic closure. l1n (No Signature Object) Patient: ANIRUDH VOGEL Study Date: 05/18/2017 Page 2 of 2 10:53 AM [id number]
== END 2017-05-18 13:08 | disposition home or self-care (01) ==
LOC: FCATH 09:41
PROVIDERS: ATTEND Internal Medicine Cardiovascular Disease
PROC: B245ZZ4 Ultrasonography of Left Heart, Transesophageal (ICD-10-PCS; principal; 2017-05-18)
DX: I48.0 Paroxysmal atrial fibrillation (principal); I48.92 Unspecified atrial flutter; I34.0 Nonrheumatic mitral (valve) insufficiency; I50.20 Unspecified systolic (congestive) heart failure
CPT/HCPCS: J2704

== ENCOUNTER 2017-07-27 06:44 | Observation (INO) | payer OTHER ==
[2017-07-27] MEDS ORDERED: NS 1,000 ML IV ONE (06:50)
--- NOTE | 2017-07-27 07:17 | CPEKG ---
Heart Rate: 111 RR Interval: 541 QRSD Interval: 78 QT Interval: 368 QTC Interval: 500 QRS [place]: 24 T Wave [place]: 57 EKG Severity - ABNORMAL ECG - EKG Impression: JUNCTIONAL TACHYCARDIA VS SLOW A-FLUTTER Electronically Signed By: Flo Minor 27-Jul-2017 11:07:36
[2017-07-27] MEDS ORDERED: LIDOCAINE 1% 300 MG/30 ML SDV ONE ×2 (07:28→07:56)
[2017-07-27] MEDS ORDERED: BUPIVACAINE 0.5% 10 ML SDV ONE ×2 (07:29→07:58)
[2017-07-27] MEDS ORDERED: HEPARIN 10,000 UNIT/10 ML MDV (1,000 UNIT/ML) ONE ×2 (07:29→07:56)
[2017-07-27 07:34] LABS: PLATELET COUNT 253 10^3/uL (150-400)
[2017-07-27 07:42] LABS: INR 1.02 (0.83-1.16); PROTIME(PATIENT) 13.6 SEC (12.0-15.0)
--- NOTE | 2017-07-27 08:21 | PDANEPAE ---
ANE History of Present Illness SVT ANE Past Medical History - Cardiovascular History Hx Hypertension: Yes Hx Arrhythmias: Yes Hx Chest Pain: No Hx Coronary Artery / Peripheral Vascular Disease: No Hx CHF / Valvular Disease: Yes Hx Palpitations: No - Pulmonary History Hx COPD: No Hx Asthma/Reactive Airway Disease: No Hx Recent Upper Respiratory Infection: No Hx Oxygen in Use at Home: No Hx Sleep Apnea: Yes - Neurologic History Hx Cerebrovascular Accident: No Hx Seizures: No Hx Dementia: No Neurologic History Comment: Mutliple sclerosis - Endocrine History Hx Diabetes: No - Liver History Hx Hepatic Disorders: No - Neurological & Psychiatric Hx Neurological / Psychiatric History Comment: depression - Chronic Pain History Chronic Pain: No ANE Review of Systems Review of Systems: ANE Patient History - Allergies Allergies/Adverse Reactions: mirabegron Allergy (Verified 07/27/17 08:15) ATRIAL FIBRILLATION/FLUTTER ofloxacin [From Floxin] Allergy (Verified 07/27/17 08:15) Swelling/neck,face,throat Penicillins Allergy (Verified 07/27/17 08:15) Rash rivaroxaban [From Xarelto] Allergy (Verified 07/27/17 08:15) ATRIAL FIBRILLATION/FLUTTER Sulfa (Sulfonamide Antibiotics) Allergy (Verified 05/17/17 17:06) - Home Medications Home Medications: Cyanocobalamin [Vitamin B12 (*)] 1,000 mcg PO DAILY #0 01/11/17 [Last Taken 12/06] Estradiol [Vivelle-Dot 0.05MG (*)] 0.05 mg TD SA 01/11/17 [Last Taken 07/22/17] Levothyroxine [Synthroid 125 mcg (*)] 125 mcg PO DAILY@08 01/11/17 [Last Taken 07/26/17] Pantoprazole Sodium [Protonix] 20 mg PO DAILY 01/11/17 [Last Taken 07/26/17] Solifenacin Succinate [Vesicare 5 MG (*)] 5 mg PO DAILY 01/11/17 [Last Taken 12/06] Amiodarone HCl [Pacerone (*)] 400 mg PO DAILY 05/18/17 [Last Taken 2 Weeks Ago ~ 07/13/17] Furosemide [Lasix 40 MG (*)] 40 mg PO DAILY 05/18/17 [Last Taken 07/26/17] Potassium Cl [Klor-Con 20 meq (*)] 20 meq PO HS 05/18/17 [Last Taken 07/25/17] Sertraline HCl [Zoloft 50mg (*)] 50 mg PO DAILY 05/18/17 [Last Taken 07/26/17] Cholecalciferol Vit D3 [Vitamin D3 2000 units tab (OTC)] 10,000 units PO DAILY 07/27/17 [Last Taken 07/26/17] Metoprolol Tartrate [Lopressor 50 mg (*)] 50 mg PO BID 07/27/17 [Last Taken 12/06 09:00] Spironolactone [Aldactone 25 MG (*)] 25 mg PO DAILY 07/27/17 [Last Taken ] - Smoking Hx Smoking Status: Never smoked ANE Labs/Vital Signs - Labs Result Diagrams: 07/27/17 07:12 07/27/17 07:12 - Vital Signs Height: 179.07 cm Weight: 83.915 kg ANE Physical Exam - Airway Neck exam: FROM Mallampati Score: Class 2 Mouth exam: normal dental/mouth exam - Pulmonary Pulmonary: no respiratory distress - Cardiovascular Cardiovascular: regular rate and rhythym - ASA Status ASA Status: III ANE Anesthesia Plan Anesthesia Plan: general endotracheal anesthesia
--- NOTE | 2017-07-27 08:31 | PDGENHP ---
History & Physical Chief Complaint: aflutter History of Present Illness: mr, af and flutter Pertinent Past, Social, Family History: cmp and mr Relevant Physical Exam: s1s2 irregular no s3 Cardiorespiratory Assessment: normal
[2017-07-27] MEDS ORDERED: fentaNYL 100 MCG/2 ML INJ ONE ×2 (08:37→08:54)
[2017-07-27] MEDS ORDERED: PHENYLEPHRINE HCL 100 MCG/ML SYR ONE (08:37)
[2017-07-27] MEDS ORDERED: ROCURONIUM 50 MG/5 ML VIAL ONE (08:37)
[2017-07-27] MEDS ORDERED: PROPOFOL 200 MG/20 ML VIAL ONE ×2 (08:38→08:54)
[2017-07-27] MEDS ORDERED: PROMETHAZINE HCL 25 MG/ML INJ IVP PRN (10:46)
[2017-07-27] MEDS ORDERED: ONDANSETRON 4 MG/2 ML VIAL IVP PRN (10:46)
[2017-07-27] MEDS ORDERED: fentaNYL 100 MCG/2 ML INJ IVP PRN (10:46)
[2017-07-27] MEDS ORDERED: NALOXONE HCL 0.4 MG/ML INJ IVP PRN (10:46)
[2017-07-27] MEDS ORDERED: ACETAMINOPHEN 325 MG TAB PO PRN (10:59)
[2017-07-27] MEDS ORDERED: OXYCODONE/APAP 5/325 TAB PO PRN (10:59)
--- NOTE | 2017-07-27 13:15 | CPEKG ---
Heart Rate: 60 RR Interval: 1000 P-R Interval: 236 QRSD Interval: 86 QT Interval: 476 QTC Interval: 476 P [place]: 60 QRS [place]: 2 T Wave [place]: 65 EKG Severity - ABNORMAL ECG - EKG Impression: SINUS RHYTHM EKG Impression: ATRIAL PREMATURE COMPLEX EKG Impression: FIRST DEGREE AV BLOCK EKG Impression: BORDERLINE T ABNORMALITIES, LATERAL LEADS Electronically Signed By: Flo Minor 28-Jul-2017 12:38:18
[2017-07-27] MEDS: APIXABAN 5 MG TAB PO SCH (20:41)
[2017-07-27] MEDS: METOPROLOL TARTRATE 50 MG TAB PO SCH (20:41)
--- NOTE | 2017-07-27 20:53 | ECHO ---
[email or web address] [place] [id number] Main: [phone] Fax: Transesophageal Echocardiography Name: ANIRUDH VOGEL MR#: [id number] Study Date: 07/27/2017 Study Time: 09:14 AM Date of : 1955 Age: 62 year(s) Height: ( ) Weight: ( ) BSA: Gender: Female Examination: MEL Indication: Pre EP Image Quality: Contrast: Requested by: Ramon Coy Heart Rate: Rhythm: BP: / Procedure Staff Access Nurse: Gunnar Phipps RDCS Reading Physician: Ramon Coy MD Requesting Provider: MEL Exam Details Conclusions: The ejection fraction is estimated to be 45-50 %. No thrombus in left appendage. Measurements: Chambers Valvular Assessment AV/MV Valvular Assessment TV/PV Normal Normal Normal Name Value Range Name Value Range Name Value Range EF Range: 45-50 % Additional Measurements: Findings: Left Ventricle: Low normal left ventricular systolic function. The ejection fraction is estimated to be 45-50 %. Left Atrial Appendage: No thrombus in left appendage. Right Atrium: The right atrium is normal in size. Mitral Valve: The mitral valve is normal in appearance and function. Aortic Valve: The aortic valve is tri-leaflet and functions normally. Patient: ANIRUDH VOGEL Study Date: 07/27/2017 Page 1 of 2 09:14 AM l1n (No Signature Object) Patient: ANIRUDH VOGEL Study Date: 07/27/2017 Page 2 of 2 09:14 AM [id number]
[2017-07-27] MEDS ORDERED: POTASSIUM CL 20 MEQ TAB PO SCH (21:00)
[2017-07-28 04:09] LABS: PLATELET COUNT 215 10^3/uL (150-400)
[2017-07-28 04:15] LABS: INR 1.2 (0.83-1.16); PROTIME(PATIENT) 15.4 SEC (12.0-15.0)
[2017-07-28] MEDS ORDERED: LEVOTHYROXINE 125 MCG TAB PO SCH (08:00)
[2017-07-28 08:27] VITALS: RESP 15
--- NOTE | 2017-07-28 08:40 | EPPROC ---
Electrophysiology Procedure Note: INDICATION: Recurrent atrial flutter PROCEDURES PERFORMED: 48870-38 EP evaluation with RA/RV/LA pace/record, with arrhythmia induction 69945-46 EP evaluation with RA/RV pace record, insert/reposition catheter, with arrhythmia induction 81081 SVT ablation 21588 3D mapping Fluoroscopy Catheters & Anesthesia: The patient arrived in the Electrophysiology Laboratory in the fasting state. The right clavicular region, right groin, and left groin area were prepped and draped in the usual sterile manner. Anesthesiologist administered general anesthesia. Appropriate non-invasive blood pressure, pulse oximetry and end- tidal CO2 monitoring was established. All catheters were placed percutaneously using the modified Seldinger technique , and advanced into position under fluoroscopic guidance. One #6 Bel[place]ian deflectable decapolar catheter was advanced into the CS and another one into the ALRA position via the RFV. Programmed stimulation was performed from the right atrium, coronary sinus ( left atrium) and right ventricle. On arrival to the Electrophysiology Laboratory the patient was in atrial flutter at CL of 290ms. Entrainment mapping from lateral TA, septal TA, proximal CS and distal CS confirmed cavotricuspid isthmus dependent atrial flutter. In preparation for ablation of typical atrial flutter, a high-resolution 3D (3 dimensional) Carto electroanatomical map of the sub-Eustachian isthmus and right atrium was obtained during pacing of the posterolateral coronary sinus. A #8 [place]ian deflectable quadripolar electrode catheter (2mm-5mm-2mm spacing) with 3.5 mm irrigated tip electrode and location sensor for the PEMRED mapping system was inserted in the long sheath and advanced to the right atrium. Radiofrequency applications were applied between the tricuspid annulus at 0630 oclock as seen in the BETY view and the inferior vena cava. This achieved conduction block across the isthmus Following ablation of the atrial flutter, programmed atrial stimulation was performed in the baseline state. No atrial arrhythmias were inducible post ablation. Post ablation, a high-resolution electroanatomical map of the sub-Eustachian isthmus was obtained during pacing of the posterolateral coronary sinus. This confirmed conduction block across the sub-Eustachian isthmus. Bidirectional block was also confirmed by pacing. The catheters were removed. The patient was transferred to the cardiovascular holding area in stable condition. Vascular access sheaths were removed in the holding area. There were no apparent complications. Results: Typical isthmus dependent counterclockwise right atrial flutter Successful ablation of the isthmus Bidirectional block post ablation No induction of Aflutter post ablation CONCLUSIONS: * Cavotricuspid isthmus dependent counterclockwise atrial flutter. * Successful catheter mediated ablation of cavotricuspid isthmus achieving bi- directional conduction block across cavotricuspid isthmus. * No atrial arrhythmias inducible post ablation. * No apparent complications. Patient Problems: Problems Problem Status Onset Atrial fibrillation and flutter Acute
[2017-07-28] MEDS ORDERED: SERTRALINE HCL 50 MG TAB PO SCH (09:00)
[2017-07-28] MEDS ORDERED: SOLIFENACIN SUCCINATE 5 MG TAB PO SCH (09:00)
[2017-07-28] MEDS ORDERED: CHOLECALCIFEROL VIT D3 2,000 UNITS TAB/CAP PO SCH (09:00)
[2017-07-28] MEDS ORDERED: SPIRONOLACTONE 25 MG TAB PO SCH (09:00)
[2017-07-28] MEDS ORDERED: PANTOPRAZOLE SODIUM 40 MG TAB PO SCH (09:00)
[2017-07-28] MEDS ORDERED: AMIODARONE HCL 200 MG TAB PO SCH (09:00)
[2017-07-28] MEDS ORDERED: FUROSEMIDE 40 MG TAB PO SCH (09:00)
[2017-07-28] MEDS ORDERED: CYANO/VITAMIN B12 1000 MCG TAB PO SCH (09:00)
--- NOTE | 2017-07-28 09:01 | CPEKG ---
Heart Rate: 58 RR Interval: 1034 P-R Interval: 248 QRSD Interval: 84 QT Interval: 508 QTC Interval: 500 P [place]: 60 QRS [place]: -4 T Wave [place]: 56 EKG Severity - ABNORMAL ECG - EKG Impression: SINUS RHYTHM EKG Impression: FIRST DEGREE AV BLOCK EKG Impression: BORDERLINE PROLONGED QT INTERVAL Electronically Signed By: Flo Minor 28-Jul-2017 12:38:03
[2017-07-28] MEDS: APIXABAN 5 MG TAB PO SCH (09:58)
[2017-07-28] MEDS: METOPROLOL TARTRATE 50 MG TAB PO SCH (09:58)
[2017-07-28 11:27] VITALS: BP 119/70; PULSE 63; TEMP 97.8; O2SAT 91
--- NOTE | 2017-07-28 14:09 | ECHO ---
[email or web address] [address] [address] Main: [phone] Fax: Transthoracic Echocardiogram Name: ANIRUDH VOGEL MR#: [id number] Study Date: 07/28/2017 Study Time: 10:56 AM Date of : 1955 Age: 62 year(s) Height: 177.8 cm (70 in.) Weight: 83.92 kg (185 lb.) BSA: 2.02 m2 Gender: Female Examination: Echo Indication: s/p ablation Image Quality: Adequate Contrast: Requested by: Zhane Thompson BP: 107 mmHg/63 mmHg Heart Rate: Rhythm: Indication: s/p ablation Procedure Staff Flight Inspector: Tonya Latham [facility] Reading Physician: lFo Galicia MD Requesting Provider: Conclusions: Normal size left ventricle. Mild concentric LV hypertrophy. Normal global systolic LV function. EF is 58 %. No regional wall motion abnormality. Normal RV function. The left atrium is moderately dilated. The right atrium is mildly dilated. There is mild thickening of the mitral valve leaflets. Moderate to severe mitral regurgitation. The aortic valve is tri-leaflet and functions normally. Trivial to mild aortic valve regurgitation. The tricuspid valve is normal in appearance and function. Moderate tricuspid regurgitation is present. Right ventricular systolic pressure measures 35mmHg. Trivial to mild pulmonic valve regurgitation. Normal size ascending aorta measuring 2.2 cm. No pericardial effusion. Measurements: Chambers Valvular Assessment AV/MV Valvular Assessment TV/PV Normal Normal Normal Name Value Range Name Value Range Name Value Range Ao Juanita (MM): 3.2 cm (2.2 cm-3.7 AV Vmax: 1.29 m/s (1 m/s-1.7 TR Vmax: 2.50 mm/s ( - ) cm) m/s) TR PGmax: 25 mmHg ( - ) IVSd (2D): 1.2 cm (0.6 cm-1.1 AV maxP mmHg ( - ) syst. PAP: 35 mmHg ( - ) cm) MV E Vmax: 0.97 m/s ( - ) PV Vmax: 0.91 m/s (0.6 m/s-0.9 LVDd (2D): 4.6 cm (3.9 cm-5.3 MV A Vmax: 0.36 m/s ( - ) m/s) cm) MV E/A: 2.69 ( - ) PV PGmax: 3 mmHg ( - ) Patient: ANIRUDH VOGEL Study Date: 07/28/2017 Page 1 of 3 10:56 AM LVDs (2D): 3.2 cm (2.1 cm-4 MV meanP mmHg ( - ) cm) MVA (Vmax): 3.0 m/s ( - ) LVPWd (2D): 1.1 cm ( - ) LVOTd 2.1 cm 2.1 cm mm LVEF (BP): 58 % (>=55 %) RVDd(2D): 4.1 cm (1.9 cm-3.8 cmmm) Continued Measurements: Chambers Valvular Assessment AV/MV Valvular Assessment TV/PV Name Value Name Value Name Value LADs: 3.8 cm MV Annulus: 3.3 cm CVP (est.): 10 mmHg LADs Lon.2 cm MV E' Septal: 0.07 m/s LA Area: 24.2 cm2 MV E/E' Septal: 13.20 LA Volume: 84 ml MV E/E' Lateral: 11.70 LA Volume Index: 41.6 ml/m2 MV VTI: 18.20 cm RA Area: 20.0 cm2 MR ERO: 0.380 cm2 MR PISA radius: 9 mm MR Reg. Volume: 66 ml MR Reg. Fraction: 42 % Additional Vessels Name Value Ao Ascendin.2 cm Findings: Left Ventricle: Normal size left ventricle. Mild concentric LV hypertrophy. Normal global systolic LV function. EF is 58 %. No regional wall motion abnormality. Right Ventricle: Normal size right ventricle. Normal RV function. Left Atrium: The left atrium is moderately dilated. Right Atrium: The right atrium is mildly dilated. Mitral Valve: There is mild thickening of the mitral valve leaflets. Moderate to severe mitral regurgitation. No mitral stenosis is present. Aortic Valve: The aortic valve is tri-leaflet and functions normally. Trivial to mild aortic valve regurgitation. No aortic valve stenosis is present. Tricuspid Valve: The tricuspid valve is normal in appearance and function. Moderate tricuspid regurgitation is present. The pulmonary artery pressure is mildly increased. Right ventricular systolic pressure measures 35mmHg. Pulmonic Valve: Pulmonary valve not well visualized. Trivial to mild pulmonic valve regurgitation. Aorta: Normal size aortic root measuring 3.2 cm. Normal size ascending aorta measuring 2.2 cm. IVC: No foreign body in inferior vena cava. Pericardium: No pericardial effusion. (No Signature Object) Patient: ANIRUDH VOGEL Study Date: 07/28/2017 Page 2 of 3 10:56 AM Patient: ANIRUDH VOGEL Study Date: 07/28/2017 Page 3 of 3 10:56 AM [id number]
--- NOTE | 2017-07-28 14:38 | GDS ---
[f rep st] DISCHARGE SUMMARY ADMIT DIAGNOSIS: 1. Atrial flutter. 2. Planned electrophysiology study with possible ablation. DISCHARGE DIAGNOSIS: 1. Atrial flutter. 2. Successful atrial flutter ablation. HOSPITAL COURSE: The patient was seen in clinic by Dr. Coy with episodes of atrial flutter, not res ponding to previous medications. It was recommended that she proceed with electrophysiology study an d possible ablation therapy. She was in agreement with this plan. She was taken to the EP lab by Dr Anne Coy on 07/27/2017, where he was able to successfully isolate the focus of atrial flutter w ith successful SVT ablation. She was recovered and taken to PCU, where she has done well. She has b een up in the room ambulating. Her groin site is intact with no bleeding or induration. At this tommy e, she currently is stable for discharge. PROCEDURE: Electrophysiology study for SVT. RESULTS: 1. Typical isthmus dependent counterclockwise right atrial flutter. 2. Successful ablation of the isthmus. 3. Bidirectional block post ablation. 4. No induction of atrial flutter post ablation. 5. No apparent complications. PHYSICAL EXAMINATION: VITAL SIGNS: On day of discharge, blood pressure 119/70, heart rate 63 and re gular. No arrhythmias noted. Oxygen saturation 91%. HEART: Rate regular. No murmurs, rubs, masterson ps. LUNGS: Clear to auscultation. No wheezes, rales, or rhonchi. : Right groin site intact wit h no bleeding, induration or pain. PULSES: 2+ femoral and distal pulses. MEDICATIONS: She will go home on vitamin B12 1000 mg daily, VESIcare 5 mg daily, Protonix 20 mg josh y, Synthroid 125 mcg daily, Vivelle-dot 0.05 mg transdermal, Eliquis 5 mg twice daily, Zoloft 50 mg d aily, Klor-Con 20 mEq at bedtime, Lasix 40 mg daily, Pacerone 400 mg daily, Aldactone 25 mg daily, vi tamin D3 10,000 units daily, Lopressor 50 mg twice daily, Tylenol 325 mg daily. DISCHARGE PLAN: She will follow up with Dr. Coy in 1 month. Appointment has been made. Groin precautions were reviewed with her and written instructions provided. Should she have further questions or concerns, she will call [facility] and ask for Felicia Cassidy. At this time, she currently is stable for discharge. /[id number]/MODL
[2017-07-29] MEDS ORDERED: ESTRADIOL VIVELLE 0.05 MG PATCH TD SCH (11:00)
== END 2017-07-28 16:20 | disposition home or self-care (01) ==
LOC: FCATH 06:44 → F2W 10:59
PROVIDERS: ADMIT Internal Medicine Cardiovascular Disease; ATTEND Internal Medicine Cardiovascular Disease
PROC: B2161ZZ Fluoroscopy of Right and Left Heart using Low Osmolar Contrast (ICD-10-PCS; principal; 2017-07-27)
PROC: B246ZZ4 Ultrasonography of Right and Left Heart, Transesophageal (ICD-10-PCS; principal; 2017-07-27)
PROC: 02583ZZ Destruction of Conduction Mechanism, Percutaneous Approach (ICD-10-PCS; principal; 2017-07-27)
PROC: 5A1213Z Performance of Cardiac Pacing, Intermittent (ICD-10-PCS; principal; 2017-07-27)
PROC: 02K83ZZ Map Conduction Mechanism, Percutaneous Approach (ICD-10-PCS; principal; 2017-07-27)
DX: I48.92 Unspecified atrial flutter (principal); I48.0 Paroxysmal atrial fibrillation; I34.0 Nonrheumatic mitral (valve) insufficiency; I42.0 Dilated cardiomyopathy; I50.22 Chronic systolic (congestive) heart failure; Z87.440 Personal history of urinary (tract) infections; F32.9 Major depressive disorder, single episode, unspecified; I11.0 Hypertensive heart disease with heart failure; E03.9 Hypothyroidism, unspecified
CPT/HCPCS: C1730; C1732; G0378; J0171; J1644; J2370; J2550; J2704; J3010

== ENCOUNTER 2018-07-17 13:08 | Day surgery (SDC) | payer OTHER, MEDICARE ==
[2018-07-17] MEDS ORDERED: fentaNYL 100 MCG/2 ML INJ IVP ONE (13:22)
[2018-07-17] MEDS ORDERED: ATROPINE SULFATE 1 MG/10 ML SYR IVP ONE (13:22)
[2018-07-17] MEDS ORDERED: BENZOCAINE UNIT DOSE SPRAY HURRICAINE MM ONE (13:22)
[2018-07-17] MEDS ORDERED: MIDAZOLAM 2 MG/2 ML VIAL IVP ONE (13:22)
[2018-07-17] MEDS ORDERED: NS 500 ML IV ONE (13:22)
--- NOTE | 2018-07-17 14:31 | PDTEE1 ---
MEL Cardioversion Procedure Procedural Details: The patient arrived to the [facility] and normal sinus rhythm. Therefore, her MEL cardioversion was canceled. Patient Problems: Problems Problem Status Onset Atrial fibrillation and flutter Acute
--- NOTE | 2018-07-24 14:37 | CPEKG ---
Test Reason : Pre-MEL/cardioversion Blood Pressure : / mmHG Vent. Rate : 078 BPM Atrial Rate : 078 BPM P-R Int : 237 ms QRS Dur : 083 ms QT Int : 413 ms P-R-T Axes : 064 -12 066 degrees QTc Int : 471 ms Sinus rhythm Prolonged GA interval Borderline T wave abnormalities Confirmed by Flo Minor ([id number]) on 07/24/2018 2:36:28 PM Referred By: Rei eBck Confirmed By:Flo Minor
== END 2018-07-17 15:15 | disposition home or self-care (01) ==
LOC: FCATH 13:08
PROVIDERS: ATTEND Internal Medicine Interventional Cardiology
DX: I48.0 Paroxysmal atrial fibrillation (principal); Z53.09 Procedure and treatment not carried out because of other contraindication; I42.0 Dilated cardiomyopathy; I34.0 Nonrheumatic mitral (valve) insufficiency; G35 Multiple sclerosis; I10 Essential (primary) hypertension; E03.9 Hypothyroidism, unspecified; F32.9 Major depressive disorder, single episode, unspecified; Z91.81 History of falling; Z87.440 Personal history of urinary (tract) infections